=== PATIENT | female | born 1965 | race Caucasian/White ===

== ENCOUNTER → 2016-09-26 | Outpatient (CLI) | payer OTHER ==
[2016-04-21 11:07] VITALS: BP 150/81
[~2016-09-26] MED LIST: BIOT25005 PO; COLE1TAB PO; GLIM1TAB PO; GUAI600T38 PO; LOSA1TAB17 PO; MELO15TA6 PO; METF10002 PO; MONT10TA9 PO; OMEP20CA9 PO; PIOG30TA20 PO; TRAM50TA PO
--- NOTE | 2016-09-27 10:26 | KCIC ---
PROCEDURE MRI brain without contrast. HISTORY Expressive aphasia. Head injury. Headaches. Sensitive to sounds. Concussion in July. Previous concussions. Forgetfulness. TECHNIQUE Sagittal T1, sagittal FLAIR, axial T1, axial T2, axial FLAIR, axial T2 gradient, coronal T2, and diffusion imaging with ADC map were performed. COMPARISON CT head from July 07, 2013. FINDINGS The ventricles and sulci are within normal limits for age. A few FLAIR hyperintensities in the supratentorial white matter, mostly in the bifrontal white matter, are nonspecific but most suggestive of minimal small vessel ischemic disease. Lesions are not oriented radially from the lateral ventricles and there is no callosal lesion. Sagittal FLAIR imaging is degraded by motion. There is no intracranial hemorrhage or extra-axial fluid collection. There is no mass effect or midline shift. There is no restricted diffusion to suggest an acute infarct. The sagittal midline structures are unremarkable. Pituitary and suprasellar region are unremarkable. Intracranial flow voids are preserved. There is minimal ethmoid mucosal thickening. IMPRESSION 1. No acute intracranial findings. 2. Nonspecific FLAIR hyperintensities within the frontal white matter bilaterally, minimal. Differential considerations would include small vessel ischemic disease and sequela of migraine headaches. While not the typical distribution for demyelination, this is still a lesser consideration. Electronically signed by: Adam Sousa MD (Sep 27, 2016 10:25:19)
== END | disposition home or self-care (01) ==
LOC: KCIC MRI 15:52
PROVIDERS: ATTEND Family Medicine
DX: S09.90XA Unspecified injury of head, initial encounter (principal); F80.1 Expressive language disorder; R47.01 Aphasia
CPT/HCPCS: 70551